=== PATIENT | male | born 2000 | race Two or more races ===

== ENCOUNTER 2021-09-10 23:24 | Emergency (ER) | payer MEDICAID, OTHER ==
[~2021-09-10] VITALS: Ht 160 cm; Wt 70.3 kg
[2021-09-10 23:25] VITALS: BP 157/97
== END 2021-09-11 03:37 | disposition left against medical advice (07) ==
LOC: ER 23:24
DX: R51.9 Headache, unspecified (principal); R11.2 Nausea with vomiting, unspecified; Z53.21 Procedure and treatment not carried out due to patient leaving prior to being seen by health care provider; Y04.2XXA Assault by strike against or bumped into by another person, initial encounter; Y93.89 Activity, other specified; Y92.89 Other specified places as the place of occurrence of the external cause; Y99.8 Other external cause status
CPT/HCPCS: 70450

== ENCOUNTER 2022-01-23 03:54 | Emergency (ER) | payer SELFPAY ==
[~2022-01-23] VITALS: Ht 167.6 cm; Wt 65.8 kg
[~2022-01-23 03:54] MED LIST: CEPH500T PO; IBUP800T27 PO
[2022-01-23] MEDS ORDERED: ASPirin 325 MG TAB PO ONE (04:45)
[2022-01-23 04:49] LABS: Basophils # (auto) 0.1 10 ^3/uL (0-0.2); Basophils % (auto) 1.2 % (0.0-2.0); Eosinophils # (auto) 0.5 10 ^3/uL (0-0.8); Eosinophils % (auto) 6.6 % (0.0-7.0); Hematocrit 43.2 % (41.0-53.0); Hemoglobin 14.7 g/dL (13.5-17.5); Lymphocytes # (auto) 2.4 10 ^3/uL (0.4-5.4); Lymphocytes % (auto) 29.9 % (10.0-50.0); Mean Corpuscular Hemoglobin 31.3 pg (28.0-32.0); Mean Corpuscular Hgb Conc. 33.9 g/dL (32.0-36.0); Mean Corpuscular Volume 92.2 fL (80.0-100.0); Monocytes # (auto) 0.7 10 ^3/uL (0-1.3); Monocytes % (auto) 8.2 % (0.0-12.0); Neutrophils # (auto) 4.4 10 ^3/uL (1.6-8.6); Neutrophils % (auto) 54.1 % (37.0-80.0); Nucleated Red Blood Cells % 0.3 %; Red Blood Cells 4.69 10^6/uL (4.5-5.90); Red Cell Distribution Width 13.4 % (11.8-14.3); White Blood Cell 8.1 10^3/uL (4.4-10.8)
[2022-01-23 05:00] LABS: Albumin 4.2 g/dL (3.4-5.0); BUN/Creatinine Ratio 15.3; Calcium 9.4 mg/dL (8.5-10.1); Potassium 3.6 mmol/L (3.5-5.1)
[2022-01-23 05:05] LABS: Bilirubin, Total 0.2 mg/dL (0.2-1.0); Total Protein 8.3 g/dL (6.4-8.2)
[2022-01-23] MEDS ORDERED: FAMOTIDINE 20 MG TAB PO ONE (05:30)
[2022-01-23] MEDS ORDERED: LIDOCAINE VISCOUS 2% 15ML UD PO ONE (05:30)
[2022-01-23] MEDS ORDERED: SUCRALFATE 1 GM/10 ML ORAL SUSP PO ONE (05:30)
[2022-01-23 07:30] VITALS: BP 106/67
== END 2022-01-23 09:02 | disposition home or self-care (01) ==
LOC: ER 03:56
DX: R07.89 Other chest pain (principal); M94.0 Chondrocostal junction syndrome [Tietze]
CPT/HCPCS: 36415; 71045; 80053; 84484; 85025; 93005